=== PATIENT | female | born 1950 | race Caucasian/White ===

== ENCOUNTER → 2016-11-19 | Outpatient (CLI) | payer OTHER, BC | LOC: GIMAGING 09:32 | PROVIDERS: ATTEND Internal Medicine Geriatric Medicine | DX: Q76.5 Cervical rib (principal); Q76.49 Other congenital malformations of spine, not associated with scoliosis; M89.38 Hypertrophy of bone, other site; F07.81 Postconcussional syndrome; H54.7 Unspecified visual loss; Z98.1 Arthrodesis status | CPT/HCPCS: 72070-PO; 72100-PO ==